=== PATIENT | female | born 1980 | race Caucasian/White ===

== ENCOUNTER 2023-06-11 09:58 | Emergency (ER) | payer BC, SELFPAY ==
[2023-06-11] VITALS (7 sets, daily range): BP systolic 102–122; BP diastolic 76–87; BMI 29.8
[2023-06-11 11:42] LABS: % Basophils 0.7 % (0-2); % Immature Granulocytes 0.5 % (0-0.5); % Lymphocytes 37.5 % (20.5-51.1); % Monocytes 9.5 % (1.7-9.3); % Neutrophils 47.8 % (42.2-75.2); Absolute Eosinophils 0.2 10^3/uL (0-0.7); Absolute Lymphocytes 2.2 10^3/uL (1.2-3.4); Absolute Monocytes 0.6 10^3/uL (0.1-0.6); Absolute Neutrophils 2.8 10^3/uL (1.4-6.5); Hematocrit 40.1 % (37.0-47.0); Hemoglobin 14.3 g/dL (12.0-16.0); Mean Corp Hgb Conc. 35.7 g/dL (33.0-37.0); Mean Corpuscular Hgb 32.8 pg (27.0-31.0); Mean Platelet Volume 9.3 fL (7.4-10.4); Nucleated Red Blood Cells % 0 %; Platelet Count 267 10^3/uL (130-400); Red Blood Cell Count 4.36 10^6/uL (4.20-5.40); Red Cell Dist. Width 12.3 % (11.5-14.5); White Blood Cell Count 5.8 10^3/uL (4.8-10.8)
[2023-06-11 12:06] LABS: Troponin I < 0.012 ng/ml
[2023-06-11 12:33] LABS: ALT (SGPT) 24 U/L (0-35); AST (SGOT) 29 U/L (14-36); Alkaline Phosphatase 64 U/L (38-126); Blood Urea Nitrogen 14 mg/dl (7-17); Calcium 9.8 mg/dl (8.4-10.2); Carbon Dioxide 26 mmol/L (22-30); Chloride 103 mmol/L (98-107); Estimated Creatinine Clearance 95 ml/min; Glucose 97 mg/dl (70-99); Potassium 4.2 mmol/L (3.5-5.1); Sodium 135 mmol/L (135-145); Total Bilirubin 0.5 mg/dl (0.2-1.3); Total Protein 8.5 g/dl (6.3-8.2); eGFR > 60.00
--- NOTE | 2023-06-11 13:02 | ED.GENMED ---
History of Present Illness
General
Chief Complaint: Chest Pain
Source: patient
Time Seen by Provider: 06/11/23 12:34
Travel History
Have you had any contact with someone who has COVID-19?: No
Do you have any symptoms of coronavirus? Fever > 100 degrees, chills, cough, shortness of breath, sore throat, loss of taste or smell, muscle aches, or headache?: No
History of Present Illness
History of Present Illness:
42-year-old female with past medical history of anxiety presenting emergency department for evaluation of left-sided chest pain that has been ongoing for the last few weeks, last night seem to be a little bit worse into the morning prompting her to
notify a neighbor who is a CVICU nurse who advised the patient to come to the ER for further evaluation. Patient has blood work scheduled through her primary care provider tomorrow and also has an appointment scheduled to see her primary care on
the of this month has not seen anybody since the symptoms started. She states the pain is pretty much constant, nonradiating and located on the left side of her chest but is not reproducible with deep inspiration, palpation, laying or sitting
forward and unrelieved with some ibuprofen. Patient denies any fevers, chills, rigors, cough, pleurisy or hemoptysis, lower extremity edema, abdominal pain, nausea, vomiting. Patient does note over the last year she has had about a 25 pound weight
gain which she says she has not tried to gain this weight. She does note associated paresthesia to both hands during this time. Social history was not significant. Family history was noted for grandmother passing away from a AAA. Patient also
denies any DVT/PE risk factors including OCP use and recent travel.
Past History
Past History
ED Past Medical History: Psychiatric
ED Past Surgical History: Cholecystectomy, , Orthopedic and Tonsilectomy
Social History
Tobacco: Non-smoker
Alcohol: Occasional
Drug: None
Personal:
Living: with family
Review of Systems
Review of Systems
All Other Systems: ROS reviewed and negative except as documented in HPI and ROS
Phy Exam
Physical Exam
Physical Exam:
GENERAL: Alert , in no apparent distress
EYE: conjunctiva clear
NECK: Supple
ENT: o/p clr, mmm.
CARDIAC: Regular rate and rhythm, no murmur
LUNGS: Clear breath sounds bilaterally, no acute respiratory distress, no wheezes/rales/rhonchi
chest wall: Patient did have tenderness over the distal most portion of her sternum however she states this pain is different from the pain she is experiencing
Abdomen: Soft, nontender, nondistended
NEUROLOGICAL: Alert and oriented
SKIN: Warm and dry, skin intact.
MUSCULOSKELETAL: well perfused. No edema. Easily palpable bilateral radial and pedal pulses
PSYCH: Normal and appropriate interaction.
Scores
Heart Failure Risk
Heart Failure Risk Score: Not Applicable
Heart Score for Chest Pain Patients
STEMI patient?: No
History: Slightly or Non-Suspicious
ECG: Normal
Age: </= 45 years
Risk Factors: No Risk Factors
Troponin: </= Normal Limit
Heart Score for Chest Pain Patients: 0
Heart Score Risk: 2.5% MACE over next 6 weeks
Withdrawal Assessment of Alcohol
Withdrawal Assessment Completed?: Not applicable
Course
Orders/Labs/Results
Orders:
Orders
06/11/23 10:01
ECG [Electrocardiogram (*1)] Urgent
Reason for Study: Chest Pain
EKG- Treatment ONCE
06/11/23 11:37
Complete Blood Count/With Diff Urgent
Comprehensive Metabolic Panel Urgent
HCG, Serum Qualitative Screen Urgent
Comment: ADD ON
TSH Urgent
Comment: ADD ON
Troponin I Urgent
06/11/23 12:47
Add On- LAB Urgent
Tests Added?: TSH
CT Chest Pe Study Urgent
Comment:
Reason For Exam: left sided chest pain
06/11/23 13:02
Add On- LAB Urgent
Tests Added?: HCG qual
06/11/23 14:30
Ketorolac [Toradol] 30 mg IV NOW STA
Abnormal Lab Results
06/11/23
11:37
MCH 32.8 H pg
(27.0-31.0)
Monocytes % 9.5 H %
(1.7-9.3)
Total Protein 8.5 H g/dl
(6.3-8.2)
06/11/23 11:37
06/11/23 11:37
Vital Signs
Initial and Last Documented VS:
Initial Vital Signs
Temp Pulse BP Pulse Ox
98.0 F 82 122/76 100
06/11/23 10:07 06/11/23 10:07 06/11/23 10:07 06/11/23 10:07
Last Documented Vital Signs
Temp Pulse Resp BP Pulse Ox
98.0 F 92 13 102/77 95
06/11/23 10:07 06/11/23 15:33 06/11/23 13:15 06/11/23 15:33 06/11/23 13:00
MDM/Problems Addressed
Differential Diagnosis Includes:
Musculoskeletal chest wall pain, pleurisy, less concern for an atypical ACS presentation, PE, aneurysm
MDM/Problems Addressed:
42-year-old female presenting emergency department for evaluation of left-sided chest wall pain for the last few weeks. This is associated with bilateral paresthesias of both hands. Last night symptoms worsened. Patient is hemodynamically stable
and in no acute distress on my exam. She does appear little bit anxious. Labs were initiated in triage and are unremarkable. EKG is also nonischemic. Given grandmother's history of aneurysm we will check a CTA. Unclear etiology for patient's
weight gain however will check a thyroid study. Reassessment following.
*Radiology
Radiology exam reviewed: radiology read reviewed
*Pulse Oximetry
Patient hypoxic: no
*EKG
Interpreted by ED Provider?: Yes
Comparison EKG: no comparison EKG present
Heart Rate: 80
Rate: normal
Rhythm: sinus arrhythmia
[place]: normal axis
Ischemia: no ischemia
*Surface Supervisor Interpretation
Rate: normal
Rhythm: sinus
*Critical Care Note
Total Time (30-74mins, 75-104mins- exclusive of procedures): Not Applicable
Patient Management
Escalation/DeEscalation of care consider admission/obs:
CT scan shows a hiatal hernia but no evidence of pulmonary embolism. Patient is otherwise stable for discharge home. Chest pain hotline was notified to help expedite outpatient cardiac follow-up. Patient is aware of return precautions and
follow-up recommendations.
ED Attending Note
-
Portions of this chart may have been created with voice recognition software.� Occasional wrong word or��sound alike� substitutions may have occurred due to the inherent limitations of voice recognition software.
Discharge Plan
Departure
Patient Disposition: Home (Routine Discharge)
Date of Disposition: 06/11/23
Time of Disposition: 15:24
Patient with high blood pressure during this ER visit?: No
Discharge Problem:
Chest pain
Instructions: Chest Pain CBC Follow Up
Referrals:
Brittny Fox CRNP [Family Provider] -
Interventions
Interventions:
*Risk Screen - Suicide Last Done: 06/11/23 11:27
*General Assessment Last Done: 06/11/23 11:27
*Neglect/Abuse Screening Last Done: 06/11/23 11:27
ED- Fall Risk Assessment Last Done: 06/11/23 11:27
*ED COVID-19 Vaccine History Last Done: 06/11/23 10:10
*Nursing Disposition Last Done: 06/11/23 15:33
ED- Cardiac Assessment Last Done: 06/11/23 11:27
Discharge Date and Time
Discharge Date/Time: 06/11/23 15:43
Print Language: PASHTO
[2023-06-11 14:14] LABS: HCG, Serum Qualitative Screen Negative
[2023-06-11] MEDS: TORADOL 30 MG IV (14:35)
[2023-06-11 15:31] LABS: TSH 1.55 uIU/ml (0.47-4.68)
== END 2023-06-11 15:43 | disposition home or self-care (01) ==
LOC: EMR 09:58
PROVIDERS: EMERGENCY PHYSICIAN Emergency Medicine; FAMILY PHYSICIAN Nurse Practitioner Family
DX: R07.89 Other chest pain (principal); R20.2 Paresthesia of skin; K44.9 Diaphragmatic hernia without obstruction or gangrene; Z86.79 Personal history of other diseases of the circulatory system
CPT/HCPCS: 99285; 96374; 71275; 80053; 84443; 84484; 84703; 85025; 93005; Q9967